=== PATIENT | male | born 1980 | race Caucasian/White ===

== ENCOUNTER 2020-08-22 08:07 | Day surgery (SDC) | payer OTHER, SELFPAY ==
[2020-08-20 12:47] VITALS: BMI 37.3
--- NOTE | 2020-08-22 08:21 | P.ANESASSM_ITS ---
Pre-Anesthetic Assessment Pre-Anesthetic Assessment: Height/Weight: Height 1.78 m Weight 117.934 kg Preop Diagnosis: change in bowel habits Proposed Procedure: Operation Date: 08/22/20 09:45 Proposed Procedures p EGD 36547 K21.9(Not Applicable) - Dimitri Hong MD s Colonoscopy 03900 K62.5(Not Applicable) - Dimitri Hong MD Familial anesthetic complications: None Was Beta Shira taken within 24 hours: N/A Was Clonidine taken within 24 hours: N/A Last intake: NPO > 8 hrs Social: Social History: No alcohol and No tobacco Exam: Pre-Anes Outpt Exam: alert, oriented x 3, clear to auscultation bilaterally and regular rate & rhythm Airway: Cervical ROM: WNL MP: 2 Dentition: Full Additional comments: renner Metabolic: Metabolic: Morbid obesity Anesthetic Plan: ASA status: 1 Anesthesia: MAC Risk of > 500 ml blood lo ss (7ml/kg in children): No PFSH Anesthesia PFSH: Medical History Bleeding per rectum Family History Denies family history of Anesthesia complication Bleeding disorder Data Anesthesia Cardiac Studies: No Data to Display
[2020-08-22 08:56] VITALS: BP 105/55; PULSE 62; RESP 16; TEMP 36.8; O2SAT 97
--- NOTE | 2020-08-22 09:02 | W.PM.OPSUD ---
Surgery/Procedure H&P Update DATE OF PROCEDURE: August 22, 2020 DATE H&P PERFORMED: 08/01/20 H&P UPDATE INFORMATION: I have reviewed H&P completed within last 30 days, I have examined patient prior to procedure and No changes to prior documentation PREOP DIAGNOSIS: Bleeding per rectum PRIMARY INDICATION FOR PROCEDURE: THE SAME PLANNED PROCEDURE: Operation Date: 08/22/20 09:45 Proposed Procedures p EGD 84202 K21.9(Not Applicable) - Dimitri Hong MD s Colonoscopy 74654 K62.5(Not Applicable) - Dimitri Hong MD
[2020-08-22] MEDS: sodium chloride 0.9% 1,000 ML 30 ML IV (09:19)
[2020-08-22 10:37] VITALS: BP 117/67; PULSE 83; RESP 18; TEMP 36.5; O2SAT 93
--- NOTE | 2020-08-22 10:48 | ANE.PACU2 ---
Inpatient post-anesthesia follow up: Airway intact: Yes Vital signs: Temperature 97.7 F Pulse Rate 83 Respiratory Rate 18 Blood Pressure 117/67 Pulse Oximetry 93 Oxygen Delivery Me thod Room Air Oxygen Flow Rate Fraction of Inspir ed Oxygen Hydration adequate: Yes Nausea and vomiting: No Mental status: Baseline
[2020-08-22 11:00] VITALS: BP 112/74; PULSE 71; RESP 16; O2SAT 95
[2020-08-23 06:29] LABS: H. Pylori / CLO Test Negative
== END 2020-08-22 11:21 | disposition home or self-care (01) ==
PROVIDERS: PCP Emergency Medicine Emergency Medical Services; Visit Provider Surgery
PROC: 0DJ08ZZ Inspection of Upper Intestinal Tract, Via Natural or Artificial Opening Endoscopic (ICD-10-PCS; CPT 43235; principal; 2020-08-22 09:45)
PROC: 0DJD8ZZ Inspection of Lower Intestinal Tract, Via Natural or Artificial Opening Endoscopic (ICD-10-PCS; CPT 45378; 2020-08-22 09:45)
DX: K62.5 Hemorrhage of anus and rectum (principal); K21.9 Gastro-esophageal reflux disease without esophagitis; Q27.33 Arteriovenous malformation of digestive system vessel; K44.9 Diaphragmatic hernia without obstruction or gangrene; K29.70 Gastritis, unspecified, without bleeding
CPT/HCPCS: 43239; 45378; 87077; 96360; 96361; J7030